=== PATIENT | female | born 1975 | race Caucasian/White ===

== ENCOUNTER 2023-09-30 09:23 | Outpatient (CLI) | payer BC, SELFPAY ==
--- NOTE | 2023-09-30 09:45 | CRLHL7_ITS ---
For Patients: As a result of the Century Cures Act, medical imaging exams and procedure reports are released immediately into your electronic medical record. You may view this report before your referring provider. If you have questions, please contact your health care provider. BILATERAL SCREENING MAMMOGRAM WITH COMPUTER-AIDED DETECTION AND TOMOSYNTHESIS TECHNIQUE: CC and MLO views were obtained. These mammographic images have been obtained using full-field digital technique. These mammographic images were interpreted with the benefit of computer-aided detection. Breast Tomosynthesis was used in this interpretation. COMPARISON FILM: 06/17/20, 03/10/18, 02/25/17. FINDINGS: There are scattered areas of fibroglandular density. IMPRESSION: There is no radiographic evidence for malignancy. ASSESSMENT: BI-RADS Category 1: Negative RECOMMENDATION: Routine screening mammogram in 1 year. A lay language report of this examination will be provided to the patient. Tr Ramos M.D. Diagnostic Radiologist [email or web address] SP/Dictated by: Tr Ramos MD @ 10/04/2023 11:13:00 AM (Electronically Signed)
== END 2023-09-30 09:24 | disposition home or self-care (01) ==
LOC: MAMMO 09:26
DX: Z12.31 Encounter for screening mammogram for malignant neoplasm of breast (principal)
CPT/HCPCS: 77063; 77067

== ENCOUNTER 2024-10-26 12:41 | Outpatient (CLI) | payer BC, SELFPAY ==
--- NOTE | 2024-10-26 13:00 | CRLHL7_ITS ---
For Patients: As a result of the Century Cures Act, medical imaging exams and procedure reports are released immediately into your electronic medical record. You may view this report before your referring provider. If you have questions, please contact your health care provider. INDICATION: BILATERAL SCREENING MAMMOGRAM, ASYMPTOMATIC 49 Y/O FEMALE COMPARISON: 09/30/2023, 03/10/2018, 02/25/2017 TECHNIQUE: Digital mammogram in CC and MLO projections including computer-aided detection (CAD) and tomosynthesis. BREAST COMPOSITION: There are scattered areas of fibroglandular density. FINDINGS: No suspicious findings. ASSESSMENT: BI-RADS 1 Negative RECOMMENDATION: Annual screening mammogram. A lay language report of this examination will be provided to the patient. Dictated by: Tr Ramos MD @ 10/29/2024 12:30:19 (Electronically Signed)
== END 2024-10-26 12:42 | disposition home or self-care (01) ==
LOC: MAMMO 12:41
DX: Z12.31 Encounter for screening mammogram for malignant neoplasm of breast (principal)
CPT/HCPCS: 77063; 77067

== ENCOUNTER 2025-02-15 10:14 | Outpatient (CLI) | payer BC, SELFPAY ==
[2025-02-18 17:35] LABS: HPV Source Cervix
[2025-02-20 19:09] LABS: HPV Genotype 16 by TMA Not Detected; HPV Genotype 18/45 by TMA Not Detected
[2025-02-21 17:39] LABS: Pap Test Digital Imaging Done; Pap Test Reviewed by Pathologi Done
== END 2025-02-15 10:15 | disposition home or self-care (01) ==
PROVIDERS: Visit Provider Registered Nurse
DX: Z12.4 Encounter for screening for malignant neoplasm of cervix (principal); Z00.00 Encounter for general adult medical examination without abnormal findings; Z13.1 Encounter for screening for diabetes mellitus
CPT/HCPCS: 80061; 82947; 87624; 87625; 88141; 88142; 88175